=== PATIENT | male | born 1995 | race Two or more races ===

== ENCOUNTER → 2021-06-29 | Outpatient (CLI) | payer OTHER ==
--- NOTE | 2021-06-29 11:11 | XR ---
EXAMINATION TYPE: XR lumbosacral spine min 4V DATE OF EXAM: 06/29/2021 CLINICAL HISTORY: Low back pain. Bulging disc. TECHNIQUE: Frontal, lateral, and oblique images of the lumbar spine are obtained. COMPARISON: None FINDINGS: There are 5 lumbar type vertebral bodies identified. The lumbar spine shows subtle slight grade 1 retrolisthesis L2 on L3 and L3 on L4 without evidence of acute fracture or dislocation. Alig nment overall straightened on lateral images. Vertebral body heights and disk space heights are withi n normal limits. The oblique images appear within normal limits. The overlying soft tissue appears unremarkable. IMPRESSION: As above.
== END | disposition home or self-care (01) ==
LOC: RADXRMAIN 10:47
PROVIDERS: ATTEND Family Medicine
DX: M43.16 Spondylolisthesis, lumbar region (principal)
CPT/HCPCS: 72110